=== PATIENT | female | born 1945 | race Caucasian/White ===

== ENCOUNTER 2018-07-31 16:40 | Emergency (ER) | payer MEDICARE, OTHER ==
[~2018-07-31] VITALS: Ht 152.4 cm; Wt 59.0 kg
[2018-07-31 18:17] LABS: Basophils # (auto) 0.1 uL; Basophils % (auto) 0.7 % (0.0-2.0); Eosinophils # (auto) 0.2 uL; Eosinophils % (auto) 2.3 % (0.0-7.0); Hematocrit 43.3 % (36.0-46.0); Hemoglobin 14.6 g/dL (12.2-16.2); Lymphocytes # (auto) 1.2 uL; Lymphocytes % (auto) 14.7 % (10.0-50.0); Mean Corpuscular Hemoglobin 29.9 pg (28.0-32.0); Mean Corpuscular Hgb Conc. 33.6 g/dL (32.0-36.0); Mean Corpuscular Volume 89.1 fL (80.0-100.0); Monocytes # (auto) 0.6 uL; Monocytes % (auto) 7.7 % (0.0-12.0); Neutrophils # (auto) 6.1 uL; Neutrophils % (auto) 74.6 % (37.0-80.0); Nucleated Red Blood Cells % 0.1 %; Platelet Count (auto) 222 10^3/uL (140-450); Red Blood Cells 4.87 10^6/uL (4.0-5.20); White Blood Cell 8.2 10^3/uL (4.4-10.8)
[2018-07-31 18:33] LABS: Albumin 3.3 g/dL (3.4-5.0); Calcium 8.4 mg/dL (8.5-10.1); Chloride 101 mmol/L (98-107); Potassium 4.4 mmol/L (3.5-5.1); Sodium 134 mmol/L (136-145)
[2018-07-31 18:41] LABS: Alanine Aminotransferase 27 U/L (13-56); Alkaline Phosphatase 61 U/L (45-117); Anion Gap 9 (5-15); Aspartate Aminotransferase 22 U/L (15-37); BUN/Creatinine Ratio 25.3; Bilirubin, Total 0.5 mg/dL (0.2-1.0); Blood Urea Nitrogen 22 mg/dL (7-18); Carbon Dioxide 24 mmol/L (21-32); GFR African American 82 mL/min; GFR Non-African American 68 mL/min; Glucose 121 mg/dL (74-106); Total Protein 6.4 g/dL (6.4-8.2)
[2018-07-31] MEDS ORDERED: SODIUM CHLORIDE 0.9% 500 ML IV ONE (19:45)
[2018-07-31 23:27] LABS: Urine Bacteria NONE SEEN /hpf (None Seen); Urine Blood Negative /uL (Negative); Urine Mucus FEW (None Seen); Urine Specific Gravity 1.014 (1.001-1.035); Urine WBC 2 /hpf (0 - 5)
[2018-08-01 00:25] VITALS: BP 139/82
== END 2018-08-01 00:23 | disposition home or self-care (01) ==
LOC: EDBD 16:40 → ER 16:53
DX: R55 Syncope and collapse (principal); E78.5 Hyperlipidemia, unspecified; I10 Essential (primary) hypertension
CPT/HCPCS: 36415; 70450; 71045; 80053; 81001; 83880; 84484; 85025; 93005; 99284; J7040